=== PATIENT | female | born 1965 | race Caucasian/White ===

== ENCOUNTER 2016-07-07 04:22 | Emergency (ER) | payer OTHER ==
[~2016-07-07] VITALS: Ht 162.6 cm; Wt 94.3 kg
[~2016-07-07 04:22] MED LIST: PRON INH
[2016-07-07 04:25] VITALS: BP 120/87
--- NOTE | 2016-07-07 04:32 | NUR ---
AMBULATED TO ER BED 5
--- NOTE | 2016-07-07 04:35 | NUR ---
51 Y/O C/O COUGH,SORETHROAT AND SOB X 3 DAYS. DENIES ANY FEVER. PT STATES HAS A HX OF ASTHMA. SLIGHTLY WHEEZES ON R MIDDLE LOBE, NO NASAL FLARING PRESENT. ER MD MADE AWARE.
[2016-07-07] MEDS ORDERED: ALBUTEROL 0.083% 2.5 MG/3 ML NEBU INH ONE (05:10)
[2016-07-07] MEDS ORDERED: predniSONE 20 MG TAB PO ONE (05:10)
[2016-07-07] MEDS ORDERED: ALBUTEROL SULFATE/IPRATROPIU 3 ML SOL IH ONE (05:10)
--- NOTE | 2016-07-07 05:10 | NUR ---
RT AT BEDSIDE. PT RECEIVING BREATHING TX.
[2016-07-07] MEDS ORDERED: predniSONE 20 MG TAB ONE (05:27)
[2016-07-07 05:47] VITALS: BP 123/64
--- NOTE | 2016-07-07 05:47 | NUR ---
Patient discharged with v/s stable. Written and verbal after care instructions given and explained. Patient alert, oriented and verbalized understanding of instructions. Ambulatory with steady gait. All questions addressed prior to discharge. ID band removed. Patient advised to follow up with PMD IN 4-5 DAYS OR RETURN TO ER IF CONDITION WORSENS. Rx of MOTRIN AND PREDNISONE given. Patient educated on indication of medication including possible reaction and side effects. Opportunity to ask questions provided and answered.
== END 2016-07-07 05:47 | disposition home or self-care (01) ==
LOC: MED 04:22
DX: J45.901 Unspecified asthma with (acute) exacerbation (principal)
CPT/HCPCS: 71010; 94640; 99283; J7512; J7613; J7620

== ENCOUNTER 2019-05-12 10:38 | Emergency (ER) | payer SELFPAY ==
[~2019-05-12] VITALS: Ht 165.1 cm; Wt 93.4 kg
[2019-05-12 10:52] VITALS: BP 141/81
--- NOTE | 2019-05-12 11:10 | NUR ---
RECEIVED A 54/F FROM TRIAGE FOR BILATERAL EAR PAIN AND PERSISTANT COUGH X 3 DAYS. LUNG SOUNDS CLEAR BILATERALLY. NO OBVIOUS INJURY NOTED TO EARS. IN BED FOR [facility].
[2019-05-12 11:36] VITALS: BP 141/81
--- NOTE | 2019-05-12 11:36 | NUR ---
Patient discharged with v/s stable. Written and verbal after care instructions given and explained. Patient alert, oriented and verbalized understanding of instructions. Ambulatory with steady gait. All questions addressed prior to discharge. ID band removed. Patient advised to follow up with PMD. Rx of CLARITIN AND PROMETHAZINE given. Patient educated on indication of medication including possible reaction and side effects. Opportunity to ask questions provided and answered.
== END 2019-05-12 11:36 | disposition home or self-care (01) ==
LOC: MED 10:38
DX: B34.9 Viral infection, unspecified (principal); R03.0 Elevated blood-pressure reading, without diagnosis of hypertension; J45.909 Unspecified asthma, uncomplicated; Z79.899 Other long term (current) drug therapy; Z98.890 Other specified postprocedural states
CPT/HCPCS: 99283

== ENCOUNTER 2020-10-18 22:54 | Emergency (ER) | payer OTHER ==
[~2020-10-18] VITALS: Ht 160 cm; Wt 96.2 kg
[2020-10-18 23:05] VITALS: BP 145/89
--- NOTE | 2020-10-18 23:28 | NUR ---
PT TAKEN TO BED 2
--- NOTE | 2020-10-19 | NUR ---
C/O HEADACHE S/P FALL ON SATURDAY 10/14. PT REPORTS SHE SLIPPED ON WATER, LANDED ON BOTH KNEES AND HIT FOREHEAD. DENIES LOSS OF CONSCIOUSNESS. + N/V X 2 EPISODES TODAY. MED HX: BRONCHITIS ALLERGIES: NKA
[2020-10-19] MEDS ORDERED: IBUPROFEN 800 MG TAB PO ONE (01:55)
[2020-10-19 02:30] VITALS: BP 145/89
--- NOTE | 2020-10-19 02:30 | NUR ---
Patient discharged with v/s stable. Written and verbal after care instructions given and explained. Patient verbalized understanding. Ambulatory with steady gait. All questions addressed prior to discharge. Advised to follow up with PMD.
== END 2020-10-19 02:30 | disposition home or self-care (01) ==
LOC: MED 22:54
DX: S06.0X9A Concussion with loss of consciousness of unspecified duration, initial encounter (principal); M25.561 Pain in right knee; M25.562 Pain in left knee; J45.909 Unspecified asthma, uncomplicated; Z79.899 Other long term (current) drug therapy; W01.0XXA Fall on same level from slipping, tripping and stumbling without subsequent striking against object, initial encounter; Y93.89 Activity, other specified; Y92.89 Other specified places as the place of occurrence of the external cause; Y99.0 Civilian activity done for income or pay
CPT/HCPCS: 70450; 73562; 99284